=== PATIENT | female | born 1985 | race Two or more races ===

== ENCOUNTER 2024-07-13 00:11 | Emergency (ER) | payer MEDICAID, SELFPAY ==
[2024-07-13] VITALS (7 sets, daily range): BP systolic 93–115; BP diastolic 54–83; PULSE 57–76; RESP 14–18; TEMP 36.2–36.7; O2SAT 94–98; BMI 34.2
--- NOTE | 2024-07-13 01:22 | XR_ITS ---
Examination: CT lumbar spine, with intravenous contrast. 2-D sagittal reconstructions. 2-D coronal reconstructions. 3-D reconstructions. Date and time of exam:July 13, 2024, 0328 hours INDICATIONS: Onset, sudden today severe back pain radiating down the right leg CTDI: vol (mGy):50.9 DLP: (mGycm):1369 Technique: Multiple 1.25 mm axial sections of the lumbar spine postintravenous administration 60 cc Isovue 370 have been obtained. 2-D sagittal and coronal reconstructions have been obtained. 3-D reconstructions have been obtained. Low dose protocols were performed. One or more of the following dose reduction techniques were used; automated exposure control, adjustment of the mA and/or KV according to patient size, use of iterative reconstruction technique. Findings: Adequate alignment lumbar vertebral bodies on the lateral view Mild disc narrowing posteriorly L5-S1 No lumbar fracture L5-S1 4 mm left paracentral disc bulge axial image 100, displacing the left S1 nerve root More cephalad levels are unremarkable IMPRESSION: No lumbar fracture L5-S1 4 mm left paracentral disc bulge displacing the left S1 nerve root Partial visualization 28 mm right posterior pelvic cyst
--- NOTE | 2024-07-13 01:22 | PD.EDBACK ---
ED Back Injury Pain RME/HPI General Chief Complaint: Back Pain/Injury Stated Complaint: BACK PAIN Time Seen by Provider: 07/13/24 00:18 Arrival date/time: 07/13/24 00:11 RME / HPI RME / HPI Narrative: Dr. Diego?s Main ED Evaluation: 38yo female BET[place] from home presents to the ED for a chief complaint of lower back pain. Patient states she was bending over packing boxes when she pulled her back and started having significant bilateral lower back pain (R>L). Patient reports she has numbness and tingling shooting down her right leg. Patient states she was unable to stand or ambulate, so she came in for evaluation. Patient denies any fever, chills, dysuria, frequency or any other associated symptoms. Related Data Allergies Allergy/AdvReac Type Severity Reaction Status Date / Time aspirin Allergy Verified 07/13/24 00:30 Review of Systems Review of Systems Systems Reviewed: All systems reviewed, normal except as documented Past Medical History Past Medical History CARDIAC: Negative Congestive Heart Failure RESPIRATORY: Negative Chronic Obstructive Pulmonary Disease (COPD) GENITOURINARY: Negative Renal Disease ENDOCRINE: Positive Endocrine Disorders and Systemic Lupus Erythematosus; Negative Diabetes Mellitus Type 1 or Diabetes Mellitus Type 2 HEMATOLOGIC: Positive Blood Disorders and Anemia Social History SMOKING STATUS: Never smoker ED Exam Narrative Physical exam: GENERAL APPEARANCE: alert and oriented x 4, well-developed, well-nourished, no acute distress VITALS: All vitals were reviewed and the pulse ox is 98% on room air, which is normal according to my interpretation. HEENT: Normocephalic, atraumatic; pupils equal, round, reactive to light; EOMI; mucous membranes pink, moist; oropharynx clear NECK: Supple LUNGS: CTABL; no wheezes, no rales, no rhonchi HEART: Regular rate, regular rhythm; normal S1, S2; no murmurs ABDOMEN: non distended; normal BS; soft, no tenderness, no guarding, no rebound; no masses, no organomegaly, no hernia BACK: no CVA tenderness; generalized lumbar spine tenderness EXTREMITIES: atraumatic; no edema; positive straight leg raise NEUROLOGIC: awake; alert and oriented x4; cranial nerves II-XII grossly intact; no focal sensory or motor deficits PSYCHIATRIC: appropriate mood and affect SKIN: warm, dry, normal color; no rashes Course Quality Measures none Orders Category Date Time Status Crowd Controller NOW Care 07/13/24 01:23 Active Continuous Pulse Oximetry NOW Care 07/13/24 01:[address] lumbar spine wo/w con Stat Exams 07/13/24 01:22 Taken CBC Stat Lab 07/13/24 01:40 Completed CMP [Comprehensive Metabolic Panel] Stat Lab 07/13/24 01:40 Completed Acetaminophen Ivpb [Ofirmev Inj] Med 07/13/24 04:15 Discontinued 1,000 mg in 100 ml IV X1 Dexamethasone Inj [Decadron Inj] Med 07/13/24 04:15 Discontinued 10 mg IVP X1 ONE HYDROmorphone INJ [Dilaudid Inj] Med 07/13/24 01:30 Active 0.5 mg IVP PRN HYDROmorphone INJ [Dilaudid Inj] Med 07/13/24 01:22 Discontinued 1 mg IVP X1 ONE Ondansetron Inj [Zofran Inj] Med 07/13/24 01:22 Discontinued 4 mg IVP X1 ONE Reevaluation(s) Reevaluation #1: Patient states her pain is now controlled and feels significantly better. CT lumbar spine result pending. Time: 04:15 Vital Signs Vital signs: Vital Signs Temperature 97.9 F 07/13/24 00:14 Pulse Rate 76 07/13/24 00:14 Respiratory Rate 18 07/13/24 00:14 Blood Pressure 115/83 07/13/24 00:14 Pulse Oximetry (%) 98 07/13/24 00:14 Oxygen Delivery Method Room Air 07/13/24 00:14 Back Pain / Injury MDM Narrative MDM Narrative:: Scribe Attestation: 07/13/24 Laura Servin am scribing for and in the presence of Dr. Diego. Patient data External records reviewed:: [facility] previous records (Per chart review, patient has no previous ED visits or admissions to this facility.) Clinical information provided by:: patient Social determinants that could affect healthcare access:: none Patient has the following chronic illnesses:: lupus How is presenting disease/condition affected by chronic disease/condition?: uneffected by Evaluation data The following diagnostics were reviewed and interpreted by me:: lab results and radiology exam(s) Lab and/or radiology exams considered but not ordered:: none Interpretation Summary: CBC and CMP are unremarkable. CT lumbar spine results pending at sign out. Medications / Prescriptions Medications or Prescriptions considered but not ordered:: none Medication administrations:: Medication Administration History Hydromorphone HCl (Hydromorphone Inj 2 Mg/Ml Vial) 0.5 mg IVP PRN SABINO Stop: 07/18/24 01:29 Discontinued Medications Dexamethasone Sodium Phosphate (Dexamethasone Sod Phos Inj 10 Mg/Ml Vial) 10 mg IVP X1 ONE Stop: 07/13/24 04:16 Last Admin: 07/13/24 05:20 Dose: 10 mg Documented By: MELINDA Hydromorphone HCl (Hydromorphone Inj 2 Mg/Ml Vial) 1 mg IVP X1 ONE Stop: 07/13/24 01:23 Last Admin: 07/13/24 02:09 Dose: 1 mg Documented By: CG Acetaminophen (Ofirmev Inj) 1,000 mg in 100 mls @ 250 mls/hr IV X1 ONE Stop: 07/13/24 04:38 Last Infusion: 07/13/24 05:53 Dose: Infused Documented By: Admin: 07/13/24 05:19 Dose: 250 mls/hr Documented By: MELINDA Ondansetron HCl (Ondansetron Inj 2 Mg/Ml Inj 2 Ml) 4 mg IVP X1 ONE; Protocol Stop: 07/13/24 01:23 Last Admin: 07/13/24 02:09 Dose: 4 mg Documented By: MELINDA see above Consultations Consultation(s) initiated? (list below): No Diagnosis Differential diagnosis back pain/injury: lumbar radiculopathy, sciatica, strain of lumbar region and discitis Most likely diagnosis given after review of the tests above:: lower back pain Admission Indicated Admission indicated?: not indicated Admission Request Was there a request for admission?: No Disposition Plan Disposition Plan: other (specify) (Signed out to Dr. Oneill at [address] lumbar spine.) Discharge Plan Prescriptions/Referrals Referrals: No Primary/Family,Physician [Primary Care Provider] - In 1 week Problem List Clinical Impression: Lower back pain Patient/Caregiver Discharge Instructions Print Language: Lithuanian
[2024-07-13 01:56] LABS: Basophils % (Auto) 0 % (0-2.5); Eosinophils # (Auto) 0.1 Thou/mm3 (0.0-0.5); Eosinophils % (Auto) 1 % (0-10); Hematocrit 36.8 % (36.0-46.0); Hemoglobin 12.3 g/dL (12.0-16.0); Immature Granulocytes % (Auto) 0 % (0-0); Immature Granulocytes Auto 0.03 Thou/mm3 (0.00-0.00); Lymphocytes # (Auto) 2.3 Thou/mm3 (1.0-4.8); Lymphocytes % (Auto) 24 % (10-50); Mean Corpuscular HGB Conc 33.4 g/dl (31.0-37.0); Mean Corpuscular Hemoglobin 27.4 pg (25.0-35.0); Mean Corpuscular Volume 82 fL (80-100); Monocytes # (Auto) 0.7 Thou/mm3 (0.0-0.8); Monocytes % (Auto) 7 % (0-12); Neutrophils # (Auto) 6.5 Thou/mm3 (1.8-7.7); Neutrophils % (Auto) 68 % (37-80); Nucleated Red Blood Cell % 0 /100 WBC (0); Platelet Count 328 Thou/mm3 (140-440); RDW Standard Deviation 40.3 fL (36.4-46.3); Red Blood Count 4.49 Miln/mm3 (4.00-5.20); White Blood Count 9.7 Thou/mm3 (3.6-11.0)
[2024-07-13] MEDS: ONDANSETRON INJ 2 MG/ML INJ 2 ML 4 MG IVP (02:09)
[2024-07-13] MEDS: HYDROmorphone INJ 2 MG/ML VIAL 1 MG IVP (02:09)
[2024-07-13 02:15] LABS: Alanine Aminotransferase 26 U/L (10-49); Albumin, Serum 4.1 gm/dL (3.5-5.0); Albumin/Globulin Ratio 1.9 (1.2-2.2); Alkaline Phosphatase 61 U/L (46-116); Anion Gap 11 (7-16); Aspartate Amino Transferase 22 U/L (0-34); BUN/Creatinine Ratio 11 Ratio (12-20); Bilirubin,Total 0.4 mg/dL (0.3-1.2); Blood Urea Nitrogen 8 mg/dL (9-23); Calcium 8.5 mg/dL (8.3-10.6); Calcium (Corrected) 8.5 mg/dL (8.5-10.1); Carbon Dioxide 23.2 mMol/L (20.0-31.0); Chloride 109 mMol/L (98-107); Creatinine (Component) 0.7 mg/dL (0.6-1.3); Estimated Creatinine Clearance 102.6 mL/min (>60); Globulin 2.2 gm/dL (2.3-3.5); Glucose 106 mg/dL (74-106); Osmolality,Calculated 283 (275-295); Potassium 3.8 mMol/L (3.4-5.1); Sodium 143 mMol/L (136-145); Total Protein 6.3 gm/dL (5.7-8.2); eGFR > 60 See Note
[2024-07-13] MEDS: ACETAMINOPHEN IVPB 1,000 MG/100 ML VIAL 250 MG IV (05:19)
[2024-07-13] MEDS: DEXAMETHASONE SOD PHOS INJ 10 MG/ML VIAL IVP (05:20)
--- NOTE | 2024-07-13 06:35 | PD.EDADDENDU ---
Emergency Room Addendum Addendum Narrative: 0600: Care assumed from Dr. Diego, the previous shift emergency physician. Past medical, surgical, social and family history reviewed. Vitals and home medications reviewed. I will assume the care of the patient at this time, pending lumbar CT and final disposition. Please refer to the emergency department record for history and examination from initial visit.? Physical exam by me shows patient under no acute distress at this time. 0759: Patient had Toradol and is feeling better, she refused the Valium here. Patient passed the road test. 0828: She states she has a long drive ahead of her but when she gets home she wants to take the muscle relaxers. 0830: Patient remains clinically stable throughout the emergency department visit. Re-assessment at the time of disposition demonstrates that the patient is in no acute distress. We reviewed all the results, analysis, and treatment plans. Patient is amenable to discharge. Strict return precautions were outlined. Patient was discharged in stable condition. Diagnosis: - Lower back pain Results Objective Laboratory: Laboratory Last Values WBC 9.7 Thou/mm3 (3.6-11.0) 07/13/24 01:40 RBC 4.49 Miln/mm3 (4.00-5.20) 07/13/24 01:40 Hgb 12.3 g/dL (12.0-16.0) 07/13/24 01:40 Hct 36.8 % (36.0-46.0) 07/13/24 01:40 MCV 82 fL (80-100) 07/13/24 01:40 MCH 27.4 pg (25.0-35.0) 07/13/24 01:40 MCHC 33.4 g/dl (31.0-37.0) 07/13/24 01:40 RDW Std Deviation 40.3 fL (36.4-46.3) 07/13/24 01:40 Plt Count 328 Thou/mm3 (140-440) 07/13/24 01:40 Neut % (Auto) 68 % (37-80) 07/13/24 01:40 Lymph % (Auto) 24 % (10-50) 07/13/24 01:40 [place] % (Auto) 7 % (0-12) 07/13/24 01:40 Eos % (Auto) 1 % (0-10) 07/13/24 01:40 Baso % (Auto) 0 % (0-2.5) 07/13/24 01:40 Neut # (Auto) 6.5 Thou/mm3 (1.8-7.7) 07/13/24 01:40 Lymph # (Auto) 2.3 Thou/mm3 (1.0-4.8) 07/13/24 01:40 [place] # (Auto) 0.7 Thou/mm3 (0.0-0.8) 07/13/24 01:40 Eos # (Auto) 0.1 Thou/mm3 (0.0-0.5) 07/13/24 01:40 Baso # (Auto) 0.0 Thou/mm3 (0.0-0.2) 07/13/24 01:40 Immature Gran # (Auto) 0.03 Thou/mm3 (0.00-0.00) H 07/13/24 01:40 Absolute Nucleated RBC 0.00 Thou/mm3 (0.00-0.00) 07/13/24 01:40 Immature Gran % 0 % (0-0) 07/13/24 01:40 Nucleated RBC % 0 /100 WBC (0) 07/13/24 01:40 Sodium 143 mMol/L (136-145) 07/13/24 01:40 Potassium 3.8 mMol/L (3.4-5.1) 07/13/24 01:40 Chloride 109 mMol/L (98-107) H 07/13/24 01:40 Carbon Dioxide 23.2 mMol/L (20.0-31.0) 07/13/24 01:40 Anion Gap 11 (7-16) 07/13/24 01:40 BUN 8 mg/dL (9-23) L 07/13/24 01:40 Creatinine 0.7 mg/dL (0.6-1.3) 07/13/24 01:40 Estim Creat Clear Calc 102.6 mL/min (>60) 07/13/24 01:40 eGFR > 60 See Note (60-) 07/13/24 01:40 BUN/Creatinine Ratio 11 Ratio (12-20) L 07/13/24 01:40 Glucose 106 mg/dL (74-106) 07/13/24 01:40 Calculated Osmolality 283 (275-295) 07/13/24 01:40 Calcium 8.5 mg/dL (8.3-10.6) 07/13/24 01:40 Corrected Calcium 8.5 mg/dL (8.5-10.1) 07/13/24 01:40 Total Bilirubin 0.4 mg/dL (0.3-1.2) 07/13/24 01:40 AST 22 U/L (0-34) 07/13/24 01:40 ALT 26 U/L (10-49) 07/13/24 01:40 Alkaline Phosphatase 61 U/L (46-116) 07/13/24 01:40 Total Protein 6.3 gm/dL (5.7-8.2) 07/13/24 01:40 Albumin 4.1 gm/dL (3.5-5.0) 07/13/24 01:40 Globulin 2.2 gm/dL (2.3-3.5) L 07/13/24 01:40 Albumin/Globulin Ratio 1.9 (1.2-2.2) 07/13/24 01:40 Imaging: Procedure(s): CT lumbar spine wo/w con Accession Number(s): [id number] cc: Krishna Hawkins MD; NO PRIMARY/FAMILY,PHYSICIAN; Baljeet Diego MD~ Examination: CT lumbar spine, with intravenous contrast. 2-D sagittal reconstructions. 2-D coronal reconstructions. 3-D reconstructions. Date and time of exam:July 13, 2024, 0328 hours INDICATIONS: Onset, sudden today severe back pain radiating down the right leg CTDI: vol (mGy):50.9 DLP: (mGycm):1369 Technique: Multiple 1.25 mm axial sections of the lumbar spine postintravenous administration 60 cc Isovue 370 have been obtained. 2-D sagittal and coronal reconstructions have been obtained. 3-D reconstructions have been obtained. Low dose protocols were performed. One or more of the following dose reduction techniques were used; automated exposure control, adjustment of the mA and/or KV according to patient size, use of iterative reconstruction technique. Findings: Adequate alignment lumbar vertebral bodies on the lateral view Mild disc narrowing posteriorly L5-S1 No lumbar fracture L5-S1 4 mm left paracentral disc bulge axial image 100, displacing the left S1 nerve root More cephalad levels are unremarkable IMPRESSION: No lumbar fracture L5-S1 4 mm left paracentral disc bulge displacing the left S1 nerve root Partial visualization 28 mm right posterior pelvic cyst Dictated By: Krishna Hawkins MD
[2024-07-13] MEDS: KETOROLAC INJ 30 MG/ML VIAL 15 MG IVP (07:28)
--- NOTE | 2024-07-13 07:57 | PC.NURSE ---
PT AMBULATED AROUND ROOM INDEPENDENTLY WITH STEADY GAIT. PT DENIED DIZZINESS OR HEADACHE AT THIS TIME.
== END 2024-07-13 08:42 | disposition home or self-care (01) ==
PROVIDERS: Emergency Medicine; Emergency Provider Emergency Medicine
DX: M51.27 Other intervertebral disc displacement, lumbosacral region (principal); N94.89 Other specified conditions associated with female genital organs and menstrual cycle; M51.372 Other intervertebral disc degeneration, lumbosacral region with discogenic back pain and lower extremity pain
CPT/HCPCS: 36415; 72133; 80053; 85025; 96365; 96375; 99285; A4649; J0131; J1100; J1171; J1885; J2405; Q9967